=== PATIENT | female | born 1965 | race Caucasian/White ===

== ENCOUNTER → 2016-12-04 | Outpatient (CLI) | payer OTHER ==
[~2016-12-04] VITALS: Ht 160 cm; Wt 117.9 kg
[~2016-12-04] MED LIST: LEXAPRO20 MG PO; SYNTHROID125 MCG PO
== END | disposition home or self-care (01) ==
LOC: AMB 11:02
PROC: 0DBL8ZX Excision of Transverse Colon, Via Natural or Artificial Opening Endoscopic, Diagnostic (ICD-10-PCS; principal; 2016-12-04)
DX: D12.3 Benign neoplasm of transverse colon (principal); Z68.42 Body mass index [BMI] 45.0-49.9, adult; Z91.040 Latex allergy status
CPT/HCPCS: 88305; J2250; J3010